=== PATIENT | female | born 1970 | race African-American/Black ===

== ENCOUNTER 2016-09-28 07:31 | Inpatient (IN) | payer OTHER ==
[~2016-09-28] VITALS: Ht 170.2 cm; Wt 123.8 kg
--- NOTE | ~2016-09-28 | EKG ---
[address] [place] [address] ELECTROCARDIOGRAM REPORT Name: DAVID GUERRA Room #: 210-P ADM IN M.R.#: [id number] Admission: 09/28/16 Attend Phys: Cooper Harris Discharge: Date of : 70 Report #: [id number] THIS REPORT FOR: //name// [facility] ED Test Date: 2016-09-28 Test Time: 08:04:46 Pat Name: DAVID GUERRA Department: Room: 210 Gender: F Pre K Teacher: Diego CONCE[employer]ION : 1970 Requested By: Briseyda Stoner Order Number: [id number] MD: Vinayak Bauer Measurements Intervals [place] Rate: 105 P: 65 NC: 149 QRS: 24 QRSD: 86 T: 93 QT: 333 QTc: 441 Interpretive Statements Sinus tachycardia Probable left atrial enlargement Borderline low voltage, extremity leads Nonspecific T abnormalities, lateral leads Compared to ECG 12/23/2015 08:14:42 T-wave abnormality now present Sinus rhythm no longer present Myocardial infarct finding no longer present Electronically Signed On 09-28-2016 13:59:20 CDT by Vinayak Bauer [email or web address] <ELECTRONICALLY SIGNED> By: Vinayak Bauer MD 09/28/16 1359 [id number] Vinayak Bauer MD /EPI
--- NOTE | ~2016-09-28 | HC ---
[facility] [address] [place] [address] CONSULTATION Name: DAVID GUERRA Room #: 216-P ADM IN M.R.#: [id number] Admission: 09/28/16 Attend Phys: Cooper Harris Discharge: Date of : 70 Report #: [id number] THIS REPORT FOR: //name// CC: [facility] FAM unknown Cooper Harris DATE OF SERVICE: 09/28/2016 REASON FOR CONSULTATION: End-stage renal disease requiring dialysis. HISTORY OF PRESENT ILLNESS: This is a 45-year-old female with end-stage renal disease who has been on dialysis for many years. She normally dialyzes on a Wednesday, Wednesday and Wednesday basis at the [facility]. She was there for her dialysis today and about half an hour or 45 minutes into her run, she began getting more anxious than usual, which is hard to believe that she could be more anxious than usual. Associated with this, she had some pleuritic chest pain. She asked to be taken off of dialysis in spite of the efforts of the dialysis staff to keep her on dialysis. She came off, she ended up in the Emergency Room here at [facility] and is now admitted. Her ____ complaint is of pleuritic chest pain, midsternal in nature. It has been going on for weeks, it comes and goes and gets worse and then less worse. She has been very intermittent in her dialysis. She only got 45 minutes today. She dialyzed less than 2 hours on her last dialysis on 09/25/2016. She says she dialyzed to a full run on 09/23/2016, but the nurse practitioner says that was also a shortened run, so she has been cut way short over time. Her biggest problem is severe and uncontrolled anxiety. She has been to psychiatric centers to try to get this treated. Unfortunately due to insurance issues, she has not followed with any regular psychiatrist. Most recently, she has been on some Remeron, which for a while helped, but now it sounds like she is not taking it. She takes p.r.n. benzodiazepines to help, but they are also very short acting and she exceeds them quickly. I would note observationally that when she is around someone she is familiar with and in a quite situation, she can calm down for a period of time, particularly if distracted. We have witnessed this multiple times when she has come in for treatment of her dialysis access in our access center. She has some dyspnea with exertion and she has intermittent nausea. PAST MEDICAL HISTORY: End-stage renal disease. Again, she has been on dialysis now for about 5 years. She has hypertension associated with that. She has anemia of end-stage renal disease. There have been previous concerns that she had either a CVA or that she has had some seizures. She was worked up last fall at [facility] and thought she maybe had some seizures, but unfortunately I do not have definitive records on that. I thought that she had undergone a cardiac workup there, but I do not have that either. [facility] [address] [place] [address] CONSULTATION Name: RA CHARLIEQUEL MARC Room #: 216-P ADM IN M.R.#: [id number] Admission: 09/28/16 Attend Phys: Cooper Harris Discharge: Date of : 70 Report #: [id number] MEDICATIONS: As listed through the Emergency Room include Nephrocaps 1 daily, Tums with meals as a phosphate binder, clonazepam 0.5 mg b.i.d., but I think that is not accurate, Hectorol at dialysis and erythropoietin in the form of Aranesp with dialysis ____, mirtazapine 30 mg at bedtime was recently started and she takes p.r.n. lorazepam. Again, medication compliance and medication consistency has been a difficult deal. ALLERGIES: No known medical allergies. FAMILY HISTORY: Positive for diabetes and hypertension. SOCIAL HISTORY: The patient is single, lives in [place], [place]. She is medically disabled. REVIEW OF SYSTEMS: Basically as noted above. Strongly positive for the severe anxiety. She has associated chest pain and dyspnea, which have basically been related to that. Difficulty maintaining dialysis for her complete run due to this anxiety. She will sit on the edge of the dialysis chair in a rocking motion, moving multiple extremities and to be truthful, it is very difficult to watch as she gets so incredibly anxious. She has nausea. She says she has not been eating very much. She has been anuric, unaware of fevers, chills or sweats. PHYSICAL EXAMINATION: GENERAL: When I first walked into the room, the patient was anxious and tearful. After we talked for a bit, she was able to calm down. Other than that, no acute distress. VITAL SIGNS: Blood pressure 155/101, heart rate 112, temperature 99.1 and oxygen saturation 95%. HEENT: Shows pupils are equal and reactive. Sclerae nonicteric. Oral mucosa is negative. NECK: Neck veins are flat. CHEST: Generally clear bilaterally. CARDIOVASCULAR: Heart has a regular rate and rhythm with an S4 gallop. ABDOMEN: Obese, has active bowel sounds, is nontender. EXTREMITIES: Show no peripheral edema. She has a left upper arm Artegraft in place which she uses as her dialysis access. It is somewhat pulsatile. It still has her needles in from dialysis. LABORATORY DATA: Sodium 137, potassium 4.8, chloride 99, bicarbonate 25, BUN 68, creatinine 14.0 and calcium 9.7. Troponin 0.12. White count 11.0, hemoglobin 10.6, hematocrit 32.5, platelets 148,000 and normal differential on the white cells. ASSESSMENT: 1. End-stage renal disease: She is under dialyzed. She is hypertensive. A [facility] [address] [place] [address] CONSULTATION Name: DAIVD GUERRA Room #: 216-P ADM IN M.R.#: [id number] Admission: 09/28/16 Attend Phys: Cooper Harris Discharge: Date of : 70 Report #: [id number] lot of her symptoms I think are related to her lack of dialysis and lack of stability. We will get her dialyzed today, get a little additional volume off. The question is if we need to dialyze her again tomorrow and get her even more clearance. 2. Chest pain: She had a minimal bump in her troponin. I do not think this is cardiac. I thought she had had a recent cardiac workup, but we are looking for those records. Nevertheless, she has such a high anxiety component that we need to treat that and get it under control. 3. Anxiety, severe: We will continue with the p.r.n. benzodiazepines. We will get her back on her mirtazapine at night to see if we can get this a little bit better regulated. 4. Hypertension: Again, she needs dialysis and volume removed. 5. We will follow along in the care of this very difficult patient. <ELECTRONICALLY SIGNED> By: Miguel Wood MD 09/29/16 0842 1202 [id number] Miguel Wood MD /nt
--- NOTE | ~2016-09-28 | 2DMMODE ---
[facility] [place] [address] [place] [address] 2 D/M-MODE ECHOCARDIOGRAM Name: DAVID GUERRAANENE Room #: 216-P ADM IN M.R.#: [id number] Admission: 09/28/16 Attend Phys: Cooper Anguiano Discharge: Date of : 70 Date of Service: 09/29/16 1150 Report #: [id number] THIS REPORT FOR: //name// APPROVED REPORT Study performed: 09/29/2016 09:39:24 EXAM: Comprehensive 2D, Doppler, and color-flow Echocardiogram Patient Location: Echo lab/Room 216 Blood Pressure: 157/97 mmHg HR: 94 bpm Rhythm: NSR Other Information Study Quality: Good Indications Respiratory failure, elevated troponin, chest pain. hx: TIA, HTN, DM, morbid obesity 2D Dimensions RVDd: 35.23 mm LVEF(%): 47.19 (>50%) IVSd: 14.32 (7-11mm) LVOT Diam: 21.12 (18-24mm) LVDd: 47.71 mm PWd: 13.64 (7-11mm) Ascending Aorta: 35.05 mm LVDs: 36.43 (25-40mm) Aortic Root: 32.28 mm Tam's LVEF: 47.19 % Volumes Left Atrial Volume (Systole) Single Plane 4CH: 57.06 mL Single Plane 2CH: 73.35 mL LA ESV Index: 29.00 mL/m2 Aortic Valve AoV Peak Ashok.: 1.27 m/s AO Peak Gr.: 6.44 mmHg LV Max P.32 mmHg LV Max: 1.04 m/s Mitral Valve MV PHT: 63.39 ms MV E Max Ashok.: 1.42 m/s E/A Ratio: 1.1 [facility] [address] [place] [address] 2 D/M-MODE ECHOCARDIOGRAM Name: DAVID GUERRA Room #: 216-P [facility] IN M.R.#: [id number] Admission: 09/28/16 Attend Phys: Cooper Anguiano Discharge: Date of : 70 Date of Service: 09/29/16 1150 Report #: [id number] MV A Ashok.: 1.32 m/s MV Decel. Time: 218.57 ms Pulmonary Valve PV Peak Ashok.: 1.05 m/s PV Peak Gr.: 4.38 mmHg Tricuspid Valve TR Peak Ashok.: 3.41 m/s RAP Estimate: 5.00 mmHg TR Peak Gr.: 46.59 mmHg RVSP: 52.00 mmHg Left Ventricle The left ventricle is normal size. Mild global hypkinesis Mild concentric left ventricular hypertrophy. Left ventricular systolic function is mildly decreased. LVEF is 45%. Grade II - pseudonormal filling dynamics. Right Ventricle The right ventricle is normal size. The right ventricular systolic function is normal. Atria The left atrium size is normal. The right atrium size is normal. Aortic Valve The aortic valve is normal in structure. No aortic regurgitation is present. There is no aortic valvular stenosis. Mitral Valve The mitral valve is normal in structure. Mild mitral regurgitation. Tricuspid Valve The tricuspid valve is normal in structure. There is mild to moderate tricuspid regurgitation. The right atrial pressure is estimated at 5 mmHg. There is moderate pulmonary hypertension. Estimated PAP is 52mmHg. Pulmonic Valve The pulmonary valve is normal in structure. Trace pulmonic regurgitation. Great Vessels The aortic root is normal in size. The ascending aorta is normal in size. IVC is normal in size and collapses >50% with inspiration. [facility] [address] [place] [address] 2 D/M-MODE ECHOCARDIOGRAM Name: DAVID GUERRA Room #: 216-P [facility] IN M.R.#: [id number] Admission: 09/28/16 Attend Phys: Cooper Anguiano Discharge: Date of : 70 Date of Service: 09/29/16 1150 Report #: [id number] Pericardium There is no pericardial effusion. <Conclusion> Mild concentric left ventricular hypertrophy. Mild global hypokinesis Left ventricular systolic function is mildly decreased. LVEF is 45%. Grade II - pseudonormal filling dynamics. The aortic valve is normal in structure, no aortic valvular insufficiency or stenosis. The mitral valve is normal in structure. Mild mitral regurgitation. There is moderate pulmonary hypertension. Estimated PAP is 52mmHg. There is no pericardial effusion. <ELECTRONICALLY SIGNED> By: Sergei Sebastian MD, FACC 09/29/16 1150 1150 1150 Sergei Sebastian MD, FACC /INF
[~2016-09-28 07:31] MED LIST: ASPIR 8181 MG PO; ASPIRIN EC81 M1 PO; ASPIRIN325 PO; ATIVAN0.5 MG PO; ATIVAN1 MG PO; BYSTOLIC10 MG PO; BYSTOLIC2.5 MG; CALCITRIOL0.5 MCG; CARISOPRODOL 3350 MG PO; CLARITIN10 MG PO; CLONAZEPAM 0.50.5 M1 PO; CLONIDINE HCL0.2 M2; COLACE100 MG PO; DEPAKOTE; DEPAKOTE ER500 MG PO; DOXYCYCLINE 10100 MG PO; DUONEB 2.5-0.5 M3 ML INH; EPOGEN2000 UNIT/ IJ; FERRLECIT62.5 MG/2 IV; HECTOROL2 MCG/1 ML IV; IBUPROFEN 600600 M1 PO; IRON325; KLONOPIN0.5 MG PO; KLONOPIN1 MG PO; LISINOPRIL5 MG PO; LITHIUM; LITHIUM CARBON300 M3 PO; LOPRESSOR 50 MG50 M1; LOPRESSOR 50 MG50 M1 PO; LOPRESSOR50 PO; METHOCARBAMOL750 MG PO; METOCLOPRAMIDE 55 M1 PO; NAPROXEN SODIU550 MG PO; NEPHROCAPS SOFT1 CAP PO; NEURONTIN 300300 M1 PO; NIACINAMIDE500 MG PO; NICOTINE TRANSD14 M1; NORCO 5-325 TA1 EACH PO; NORVASC 5 MG TAB5 MG PO; OMEPRAZOLE 20 M20 M1 PO; PEPCID AC20 M1; PHOSLO667 M1 PO; PHOSLO667 MG PO; PRILOSEC20 MG PO; PROMETHAZI25 MG/1 M1 IJ; RENVELA800 MG PO; SENSIPAR90 MG PO; TESSALON PERLE100 MG PO; TUMS PO; VALIUM5 MG PO; VENTOLIN HFA 1818 GM INH; ZESTRIL10 MG PO; ZOFRAN 4 MG ORAL4 M1 DIS; ZPAK PO
[2016-09-28 07:32] VITALS: BP 140/69
[2016-09-28 08:44] LABS: ABSOLUTE NEUTROPHILS 8.8 thou/uL (1.4-8.2); BASOPHILS 0.2 % (0.0-2.0); EOSINOPHILS 1.2 % (0.0-3.0); HEMATOCRIT 32.5 % (37.0-47.0); HEMOGLOBIN 10.6 gm/dL (12.0-15.0); MCH 29.5 pg (26.0-34.0); MCHC 32.5 g/dL (28.0-37.0); MCV 90.8 fL (80.0-100.0); PLATELET COUNT 148 thou/uL (150-400); POLYS 79.6 % (36.0-66.0); RBC 3.58 mil/uL (4.20-5.00); RDW 17.3 % (10.5-14.5)
[2016-09-28 08:45] LABS: MANUAL DIFF NO
[2016-09-28 08:48] LABS: CALCIUM 9.7 mg/dL (8.5-10.1); POTASSIUM 4.8 mmol/L (3.5-5.1)
[2016-09-28 08:57] LABS: TROPONIN-I 0.12 ng/mL (<0.04-0.07)
[2016-09-28 10:47] VITALS: BP 146/76
[2016-09-28 11:29] VITALS: BP 155/101
[2016-09-28] MEDS ORDERED: PROTONIX40 M1 PO (13:22)
[2016-09-28 19:09] VITALS: BP 148/93
[2016-09-28 23:58] VITALS: BP 115/63
[2016-09-29 03:27] LABS: ALBUMIN 3.2 g/dL (3.4-5.0); CALCIUM 9.1 mg/dL (8.5-10.1); PHOSPHORUS 4.7 mg/dL (2.5-4.9); POTASSIUM 5.1 mmol/L (3.5-5.1)
[2016-09-29 05:10] VITALS: BP 106/56; BP 160/99
[2016-09-29 07:38] VITALS: BP 157/97
[2016-09-29 19:40] VITALS: BP 108/62
[2016-09-30 04:36] VITALS: BP 114/59
[2016-09-30 07:30] VITALS: BP 144/82
[2016-09-30] MEDS ORDERED: ALPRAZOLAM 0.50.5 MG PO (09:26)
[2016-09-30 09:31] VITALS: BP 144/82
== END 2016-09-30 10:13 | disposition home or self-care (01) | DRG 189 ==
LOC: ER 07:31 → 2N 09:59 → EROBS 09:59 → 2N 10:59
PROVIDERS: Emergency Medicine; Internal Medicine Nephrology
PROC: 5A1D60Z (ICD-10-PCS; principal; 2016-09-28)
DX: J96.00 Acute respiratory failure, unspecified whether with hypoxia or hypercapnia (principal); N18.6 End stage renal disease; I12.0 Hypertensive chronic kidney disease with stage 5 chronic kidney disease or end stage renal disease; E89.0 Postprocedural hypothyroidism; F12.90 Cannabis use, unspecified, uncomplicated; E11.22 Type 2 diabetes mellitus with diabetic chronic kidney disease; F17.210 Nicotine dependence, cigarettes, uncomplicated; F41.1 Generalized anxiety disorder; F31.9 Bipolar disorder, unspecified; Z86.73 Personal history of transient ischemic attack (TIA), and cerebral infarction without residual deficits; Z82.49 Family history of ischemic heart disease and other diseases of the circulatory system; Z79.82 Long term (current) use of aspirin; Z79.899 Other long term (current) drug therapy; Z99.2 Dependence on renal dialysis; Z83.3 Family history of diabetes mellitus
CPT/HCPCS: 10081; 32100

== ENCOUNTER 2018-03-25 09:18 | Emergency (ER) | payer OTHER ==
[~2018-03-25] VITALS: Ht 167.6 cm; Wt 131.5 kg
--- NOTE | ~2018-03-25 | EKG ---
[address] [address] ELECTROCARDIOGRAM REPORT Name: RA CHARLIEQUEL MARC [id number] Admission: 03/25/18 Attend Phys: Discharge: 03/25/18 Date of : 70 Report #: [id number] THIS REPORT FOR: //name// [facility] ED Test Date: 2018-03-25 Test Time: 09:36:05 Pat Name: DAVID GUERRA Department: Room: Gender: F Page Technician: [facility] : 1970 Requested By: Raymond Hamilton Order Number: [id number] MD: Vinayak Bauer Measurements Intervals [place] Rate: 89 P: 51 UT: 173 QRS: 17 QRSD: 89 T: 107 QT: 399 QTc: 486 Interpretive Statements Sinus rhythm Borderline low voltage, extremity leads Nonspecific T abnormalities, lateral leads Borderline prolonged QT interval Compared to ECG 04/25/2017 07:59:14 Atrial abnormality no longer present ST (T wave) deviation no longer present T-wave abnormality still present Electronically Signed On 03-25-2018 23:08:39 CDT by Vinayak Bauer [email or web address] <ELECTRONICALLY SIGNED> By: Vinayak Bauer MD 03/25/18 2308 Vinayak Bauer MD /EPI
[~2018-03-25 09:18] MED LIST changes: +ALPRAZOLAM 0.50.5 MG PO; +AMOXICILLIN 50500 M1 PO; +GUAIFEN-CODEINE10 ML PO; +MOBIC15 MG PO; +PROTONIX40 M1 PO
[2018-03-25 11:21] LABS: HEMATOCRIT 35.2 % (37.0-47.0); HEMOGLOBIN 11.7 gm/dL (12.0-15.0); MCH 30.9 pg (26.0-34.0); MCHC 33.2 g/dL (28.0-37.0); MCV 93.2 fL (80.0-100.0); RBC 3.77 mil/uL (4.20-5.00); RDW 20.1 % (10.5-14.5); WBC 8.7 thou/uL (4.0-11.0)
[2018-03-25 11:28] LABS: ANION GAP 6 mmol/L (7-16); BUN 33 mg/dL (7-18); CALCIUM 9.3 mg/dL (8.5-10.1); CHLORIDE 98 mmol/L (98-107); CO2 30 mmol/L (21-32); CREATININE 6.4 mg/dL (0.6-1.0); GLUCOSE 154 mg/dL (74-106); SODIUM 134 mmol/L (136-145)
[2018-03-25 11:36] LABS: TROPONIN-I <0.06 ng/mL (<0.06)
[2018-03-25 11:47] LABS: ABSOLUTE NEUTROPHILS 6.9 thou/uL (1.4-8.2); ANISOCYTOSIS 1+
[2018-03-25 11:48] LABS: LARGE PLATELETS RARE; PLATELET COUNT 100 thou/uL (150-400)
[2018-03-25 13:00] VITALS: BP 173/103
== END 2018-03-25 14:01 | disposition home or self-care (01) ==
LOC: ER 09:18
PROVIDERS: Emergency Medicine
DX: R07.89 Other chest pain (principal); R79.89 Other specified abnormal findings of blood chemistry; Z91.15 Patient's noncompliance with renal dialysis; F17.210 Nicotine dependence, cigarettes, uncomplicated; E11.9 Type 2 diabetes mellitus without complications; I10 Essential (primary) hypertension; F31.9 Bipolar disorder, unspecified; F41.9 Anxiety disorder, unspecified; Z86.73 Personal history of transient ischemic attack (TIA), and cerebral infarction without residual deficits; Z90.89 Acquired absence of other organs; Z91.048 Other nonmedicinal substance allergy status

== ENCOUNTER 2018-04-25 07:53 | Emergency (ER) | payer OTHER ==
[~2018-04-25] VITALS: Ht 170.2 cm; Wt 127.0 kg
--- NOTE | ~2018-04-25 | EKG ---
[address] [place] [address] ELECTROCARDIOGRAM REPORT Name: DAVID GUERRA [facility] [id number] Admission: 04/25/18 Attend Phys: Discharge: 04/25/18 Date of : 70 Report #: [id number] THIS REPORT FOR: //name// [facility] ED Test Date: 2018-04-25 Test Time: 08:17:41 Pat Name: DAVID GUERRA Department: Room: Gender: F Quality Assurance Lab Technician: GERRY : 1970 Requested By: John Tabor Order Number: [id number] MD: Sergei Sebastian Measurements Intervals [place] Rate: 87 P: 42 TN: 176 QRS: 30 QRSD: 88 T: 104 QT: 402 QTc: 484 Interpretive Statements Sinus rhythm Poor R wave progression Nonspecific T abnormalities, lateral leads Compared to ECG 03/25/2018 09:36:05 No significant change was found Electronically Signed On 04-25-2018 17:06:52 CDT by Sergei Sebastian [email or web address] <ELECTRONICALLY SIGNED> By: Sergei Sebastian MD, [facility] 04/25/18 1706 6 6 Sergei Sebastian MD, [facility] /EPI
[2018-04-25 08:28] LABS: HEMATOCRIT 35.5 % (37.0-47.0); HEMOGLOBIN 11.5 gm/dL (12.0-15.0); MCH 30.6 pg (26.0-34.0); MCHC 32.5 g/dL (28.0-37.0); MCV 94.2 fL (80.0-100.0); RBC 3.77 mil/uL (4.20-5.00); RDW 18.3 % (10.5-14.5); WBC 5.8 thou/uL (4.0-11.0)
[2018-04-25 08:39] LABS: ANION GAP 8 mmol/L (7-16); BUN 62 mg/dL (7-18); CALCIUM 8.8 mg/dL (8.5-10.1); CHLORIDE 98 mmol/L (98-107); CO2 30 mmol/L (21-32); CREATININE 10.1 mg/dL (0.6-1.0); GLUCOSE 125 mg/dL (74-106); POTASSIUM 5.6 mmol/L (3.5-5.1); SODIUM 136 mmol/L (136-145)
[2018-04-25 08:48] LABS: TROPONIN-I <0.06 ng/mL (<0.06)
[2018-04-25 10:56] VITALS: BP 139/97
== END 2018-04-25 10:59 | disposition home or self-care (01) ==
LOC: ER 07:53
PROVIDERS: Emergency Medicine
DX: R55 Syncope and collapse (principal); R07.89 Other chest pain; E11.22 Type 2 diabetes mellitus with diabetic chronic kidney disease; I12.0 Hypertensive chronic kidney disease with stage 5 chronic kidney disease or end stage renal disease; N18.6 End stage renal disease; F17.210 Nicotine dependence, cigarettes, uncomplicated; Z99.2 Dependence on renal dialysis; Z86.73 Personal history of transient ischemic attack (TIA), and cerebral infarction without residual deficits